=== PATIENT | male | born 2000 | race Caucasian/White ===

== ENCOUNTER 2024-10-22 09:22 | Inpatient (IN) | payer OTHER, SELFPAY ==
[2024-10-18 23:34] VITALS: BP 138/87
--- NOTE | 2024-10-18 23:46 | ED.GENMED ---
History of Present Illness
<Bonita Peter PA-C - Last Filed: 10/19/24 01:56>
General
Chief Complaint: Dehydration Symptoms
Source: patient
Exam Limitations: none
Time Seen by Provider: 10/18/24 23:45
Nursing documentation reviewed up to this point in time: agreed with
History of Present Illness
History of Present Illness:
Note:
CHIEF COMPLAINT(S)
Dark urine
HISTORY OF PRESENT ILLNESS
The patient is a 24-year-old male with no significant past medical history, who presents to the emergency department today with concerns of dark-colored urine for approximately 30-45 minutes. The patient reports that he was getting ready for bed
tonight and went to use the bathroom when he noticed his urine was dark in color and brown appearing. This has never happened to patient before. Of note, patient reports that he works outside in [employer] and does this every day. He did note that he
thought he was perspiring a lot today. Patient reports that when he got home, he had dinner and then he went to the gym to lift weights. He reports that his legs feel sore from weight lifting. Patient reports that he does not lift weights regularly
and today was the first day he started to do this. Patient denies any medical history, denies any history of kidney stones, denies any history of intra-abdominal surgeries. He denies any flank pain, back pain, abdominal pain, nausea, vomiting,
fevers or chills. He denies any sick contacts, he denies any changes to his appetite. Of note patient reports that earlier, he noted some mild burning with urination but this has since resolved and he seems to have only had 1 episode of this. He
denies any chest pain, shortness of breath.
ADDITIONAL HISTORY OBTAINED FROM SOURCES OTHER THAN THE PATIENT
According to the patient, his sister has a history of kidney stones, but there is no personal history of similar issues.
SOCIAL HISTORY
The patient works in [employer], which involves being outdoors for extended periods.
REVIEW OF SYSTEMS
See HPI
PHYSICAL EXAM
General: Patient is well appearing and in no acute distress; non-toxic
Skin: Warm and dry, no rashes or lesions
Head: Normocephalic, atraumatic
Eyes: Sclera non-icteric. EOMs intact.
Cardiac: Patient is tachycardic otherwise regular rhythm, no murmurs
Peripheral Vascular: No lower extremity swelling or edema
Pulm: Normal respiratory effort, no wheezes, rales, rhonchi
Abdomen: No abdominal tenderness to palpation, normoactive bowel sounds
Neuro: CN II-XII intact, no focal neurologic deficits.
Psychiatric: Appropriate mood and affect.
PLAN
Hydrate with IV fluids
Obtain CBC, CMP, CPK level
Obtain urinalysis
Reassess
DIFFERENTIAL DIAGNOSIS
The Differential Diagnosis includes, in no particular order and is not limited to:
- Dehydration
- Rhabdomyolysis
- Urinary tract infection
- Kidney stones
- Acute kidney injury
- Viral infection
REVIEW OF PREVIOUS RECORDS
No prior ER physician documentation or discharge summaries in [facility] to review
UPDATES
On reassessment notes some soreness in his legs but otherwise feels well
MDM/DISPOSITION
24-year-old male with no significant past medical history presents emergency department today with concerns of dark-colored urine starting approximately 45 minutes ago. History, physical, and plan as above. He was found to be in acute rhabdomyolysis
with a AST of 1517, ALT of 435, and CK of 108,966. Case discussed with hospitalist for admission.
Review of Systems
<Bonita Peter PA-C - Last Filed: 10/19/24 01:56>
Review of Systems
All Other Systems: ROS reviewed and negative except as documented in HPI and ROS
Phy Exam
<Bonita Peter PA-C - Last Filed: 10/19/24 01:56>
Physical Exam
Physical Exam:
see hpi
Course
<Bonita Peter PA-C - Last Filed: 10/19/24 01:56>
Orders/Labs/Results
Orders:
Orders
10/18/24 23:57
CPK [Creatine Phosphokinase] Urgent
Complete Blood Count/With Diff Urgent
Comprehensive Metabolic Panel Urgent
Urinalysis Reflex To Culture Urgent
Date Specimen was Collected: 10/18/24
Time Specimen was Collected: 23:55
Urine Microscopic Reflex Cult Urgent
0.9% Sodium Chloride 1000 ml [Nss] 1,000 ml IV BOLUS
10/19/24 01:09
0.9% Sodium Chloride 500 ml [Nss] 500 ml IV BOLUS
Abnormal Lab Results
10/18/24
23:57
RDW 11.3 L %
(11.5-14.5)
Absolute Monos (auto) 0.7 H 10^3/uL
(0.1-0.6)
Monocytes % 10.2 H %
(1.7-9.3)
BUN 22 H mg/dl
(9-20)
Glucose 104 H mg/dl
(70-99)
AST 1517 H* U/L
(17-59)
ALT 435 H U/L
(0-50)
Creatine Kinase 267127 H U/L
(55-170)
Albumin 5.2 H g/dl
(3.5-5.0)
Ur Occult Blood Reflex 4+ A
(Negative)
Urine Albumin (Reflex) 3+ A
(Neg - Trace)
10/18/24 23:57
10/18/24 23:57
Vital Signs
Initial and Last Documented VS:
Initial Vital Signs
Temp Pulse Resp BP Pulse Ox
98.4 F 121 20 138/87 96
10/18/24 23:34 10/18/24 23:34 10/18/24 23:34 10/18/24 23:34 10/18/24 23:34
Last Documented Vital Signs
Temp Pulse Resp BP Pulse Ox
98.4 F 89 18 123/77 100
10/18/24 23:34 10/19/24 00:03 10/19/24 00:03 10/19/24 00:03 10/19/24 00:03
<Ondina Cobb MD - Last Filed: 10/19/24 01:56>
Orders/Labs/Results
Orders:
Orders
10/18/24 23:57
CPK [Creatine Phosphokinase] Urgent
Complete Blood Count/With Diff Urgent
Comprehensive Metabolic Panel Urgent
Urinalysis Reflex To Culture Urgent
Date Specimen was Collected: 10/18/24
Time Specimen was Collected: 23:55
Urine Microscopic Reflex Cult Urgent
0.9% Sodium Chloride 1000 ml [Nss] 1,000 ml IV BOLUS
10/19/24 01:09
0.9% Sodium Chloride 500 ml [Nss] 500 ml IV BOLUS
Abnormal Lab Results
10/18/24
23:57
RDW 11.3 L %
(11.5-14.5)
Absolute Monos (auto) 0.7 H 10^3/uL
(0.1-0.6)
Monocytes % 10.2 H %
(1.7-9.3)
BUN 22 H mg/dl
(9-20)
Glucose 104 H mg/dl
(70-99)
AST 1517 H* U/L
(17-59)
ALT 435 H U/L
(0-50)
Creatine Kinase 873623 H U/L
(55-170)
Albumin 5.2 H g/dl
(3.5-5.0)
Ur Occult Blood Reflex 4+ A
(Negative)
Urine Albumin (Reflex) 3+ A
(Neg - Trace)
10/18/24 23:57
10/18/24 23:57
Vital Signs
Initial and Last Documented VS:
Initial Vital Signs
Temp Pulse Resp BP Pulse Ox
98.4 F 121 20 138/87 96
10/18/24 23:34 10/18/24 23:34 10/18/24 23:34 10/18/24 23:34 10/18/24 23:34
Last Documented Vital Signs
Temp Pulse Resp BP Pulse Ox
98.4 F 89 18 123/77 100
10/18/24 23:34 10/19/24 00:03 10/19/24 00:03 10/19/24 00:03 10/19/24 00:03
<Bonita Peter PA-C - Last Filed: 10/19/24 01:56>
*Pulse Oximetry
SaO2: 96
Oxygen Mode of Delivery: Room air
*Critical Care Note
Total Time (30-74mins, 75-104mins- exclusive of procedures): Not Applicable
ED Attending Note
<Bonita Peter PA-C - Last Filed: 10/19/24 01:56>
-
Portions of this chart may have been created with voice recognition software.� Occasional wrong word or��sound alike� substitutions may have occurred due to the inherent limitations of voice recognition software.
<Ondina Cobb MD - Last Filed: 10/19/24 01:56>
ED Attending Note
Patient seen and examined by attending physician: Yes
I performed the substantive portion of visit, reviewed & personally made and approve the management plan that is documented in note by myself or MAGGIE.: Yes
ED Attending Note:
24-year-old male who noted dark urine today. He does note that he return to the gym after a 9-month hiatus 2 days ago and did a relatively intense workout. 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 He denies any complaints with the
exception of his legs being a little bit sore. He denies bruising, bleeding, chest pain, shortness of breath, abdominal pain, dysuria, fever, chills, or other complaints. Patient does not use drugs. Patient is never had this before. On exam
patient extremely well-appearing awake alert pleasant. No tenderness to palpation of lower extremities. Evaluation consistent with rhabdomyolysis. Potassium and calcium unremarkable. IV fluids initiated, admission.
Discharge Plan
Departure
Patient Disposition: Admit
Date of Disposition: 10/19/24
Time of Disposition: 01:50
Admit to: Med/Surg
Presentation/result/management discussed w/ accepting MD/DO: Hospitalist
Patient with high blood pressure during this ER visit?: No
Condition: Fair
Discharge Problem:
Rhabdomyolysis
Prescriptions:
No Action
No Current Medications
0
Referrals:
Brian Tomas MD [Family Provider, Family Practice]
Interventions
Interventions:
*Risk Screen - Suicide Last Done: 10/18/24 23:34
*General Assessment Last Done: 10/18/24 23:34
*Neglect/Abuse Screening Last Done: 10/18/24 23:34
*ED- Fall Risk Assessment Last Done: 10/18/24 23:34
*ED COVID-19 Vaccine History Last Done: 10/18/24 23:34
ED- Cardiac Assessment Last Done: 10/18/24 23:51
ED-Male Genitourinary Assessment Last Done: 10/18/24 23:51
ED- Neurological Assessment Last Done: 10/18/24 23:51
ED- Pulmonary Assessment Last Done: 10/18/24 23:51
Discharge Date and Time
Print Language: AMHARIC
[2024-10-19] VITALS (7 sets, daily range): BP systolic 105–132; BP diastolic 62–83; BMI 21.0
[2024-10-19] MEDS: NSS 1000 IV ×5 (00:05→19:24)
[2024-10-19 00:27] LABS: Urine Albumin 3+ (Neg - Trace); Urine Bilirubin Negative (Negative); Urine Character Clear (Clear); Urine Color Amber; Urine Glucose Negative (Negative); Urine Ketone Negative (Negative); Urine Leukocyte Negative (Negative); Urine Nitrite Negative (Negative); Urine Occult Blood 4+ (Negative); Urine Specific Gravity 1.025 (<1.030); Urine Urobilinogen Negative (Neg - 1+)
[2024-10-19 00:39] LABS: ALT (SGPT) 435 U/L (0-50); Albumin 5.2 g/dl (3.5-5.0); Alkaline Phosphatase 38 U/L (38-126); Blood Urea Nitrogen 22 mg/dl (9-20); Calcium 9.9 mg/dl (8.4-10.2); Carbon Dioxide 27 mmol/L (22-30); Chloride 106 mmol/L (98-107); Glucose 104 mg/dl (70-99); Potassium 3.8 mmol/L (3.5-5.1); Sodium 142 mmol/L (135-145); Total Bilirubin 0.9 mg/dl (0.2-1.3); Total Protein 7.5 g/dl (6.3-8.2); eGFR > 60.00
[2024-10-19 00:42] LABS: % Basophils 0.6 % (0-2); % Eosinophils 1.7 % (0-6); % Immature Granulocytes 0.3 % (0-0.5); % Lymphocytes 29.1 % (20.5-51.1); % Monocytes 10.2 % (1.7-9.3); % Neutrophils 58.1 % (42.2-75.2); Absolute Eosinophils 0.1 10^3/uL (0-0.7); Absolute Lymphocytes 2.1 10^3/uL (1.2-3.4); Absolute Monocytes 0.7 10^3/uL (0.1-0.6); Absolute Neutrophils 4.1 10^3/uL (1.4-6.5); Hemoglobin 15.6 g/dL (13.0-18.0); Mean Corp Hgb Conc. 36.3 g/dL (33.0-37.0); Mean Corpuscular Volume 85.3 fL (80.0-94.0); Mean Platelet Volume 10.2 fL (7.4-10.4); Nucleated Red Blood Cells % 0 % (-); Platelet Count 245 10^3/uL (130-400); Red Blood Cell Count 5.04 10^6/uL (4.70-6.10); Red Cell Dist. Width 11.3 % (11.5-14.5); White Blood Cell Count 7.1 10^3/uL (4.8-10.8)
[2024-10-19 00:54] LABS: Urine Red Blood Cell 0-2 /HPF (0-2); Urine White Cell 0-2 /HPF (0-5)
[2024-10-19 00:57] LABS: AST (SGOT) 1517 U/L (17-59)
[2024-10-19] MEDS: NSS 500 IV (01:11)
[2024-10-19 01:31] LABS: Creatine Phosphokinase 108966 U/L (55-170)
--- NOTE | 2024-10-19 03:12 | HPS.HSE ---
Family Physician
-
Family Physician: Brian Tomas
Chief Complaint
-
Dehydration, dark-colored urine
History of Present Illness
This is a 24-year-old male with no notes of Past medical history presenting to the emergency department after he noticed dark/brown-colored urine over the last 2 days.
Patient initially noticed that the urine was brownish colored but still light wondered ago. However the following day he started having very dark brown urine which was atypical for him.
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 He is usually cognizant of his dehydration status looking at his urine but states that this is darker in usual. He also reports soreness in the adductor muscles
of the thighs bilaterally as well as in the calves bilaterally. Patient stated that he had recently started going back to the gym after 8 months of not going. He was doing squats and although it tried to start slowly he has friends in the area and
he did not go for his personal best.
Patient states he hydrates himself with water regularly. Reports taking some protein supplement but no additional supplements 40 workout. He denies any family history of personal history of connective tissue disorders. He denies any medications.
He denies any congenital diseases.
In the emergency department he was afebrile, blood pressure was 120/70 with a pulse of 81 and was satting 98%.
CBC was unremarkable. Electrolytes were normal. BUN/creatinine were normal. AST was elevated at 40,000, CK was greater than 642425.
Medical History
Past Medical History
Past Medical History: Reports None
Past Surgical History: Reports Other (Jet tooth removal)
Social History
Tobacco: Non-smoker
Alcohol: Occasional
Drug: None
Personal: Single
Living: With Family
Employment: Not Employed
Family History
Family History: Not pertinent
Allergies / Home Medications
Allergies reflects when Allergies were last updated in [email or web address].
Home Medications with original date entered in [email or web address]
Allergy/Medication List:
Allergies
Allergy/AdvReac Type Severity Reaction Status Date / Time
No Known Allergies Allergy Verified 10/18/24 23:34
Home Medications
No Meds [No Current Medications] 10/18/24
Review of Systems
-
History Source: Patient
Constitutional: Reports No Symptoms
EENT: Reports No Symptoms
Respiratory: Reports No Symptoms
Cardiac: Reports No Symptoms
Abdomen/GI: Reports No Symptoms
: Reports Dark Urine
Musculoskeletal: Reports No Symptoms
Skin: Reports No Symptoms
Neurological: Reports No Symptoms
Endocrine: Reports No Symptoms
Hematologic/Lymphatic: Reports No Symptoms
Psych: Reports No Symptoms
Physical Exam
Vital Signs
Vital Signs
Temp Pulse Resp BP Pulse Ox
98.4 F 81 17 123/77 98
10/18/24 23:34 10/19/24 01:56 10/19/24 01:56 10/19/24 01:56 10/19/24 01:56
Physical Exam
General: Well Developed, Well Nourished and No Apparent Distress
HEENT: NormoCephalic, Moist mucous membranes and Atraumatic
Respiratory: Clear
Cardiac: S1/S2 and Regular Rhythm; No Murmur or Rub
GI: Soft, Non Tender, Non Distended and Normal Bowel Sounds; No Organomegaly
Rectal: Deferred by Provider
Musculoskeletal: No Clubbing, No Cyanosis and No Edema
Skin: No Rash
Neuro: Nonfocal/grossly intact
Laboratory Results
-
10/18/24 23:57
10/18/24 23:57
Laboratory Results
Total Bilirubin 0.9 mg/dl (0.2-1.3) 10/18/24 23:57
AST 1517 U/L (17-59) H* 10/18/24 23:57
ALT 435 U/L (0-50) H 10/18/24 23:57
Alkaline Phosphatase 38 U/L (38-126) 10/18/24 23:57
Data Reviewed
-
Lab Data: Labs Reviewed by me
Old Records: Reviewed
Impression/Plan
-
IMPRESSION:
24-year-old male with rhabdomyolysis likely on the basis of dehydration and recently restarting heavy with exercises in the gym. No history of connective tissue disorders. He denies any weakness. He does have soreness in the adductor muscles of
the thigh and calf muscles. Denies having any spasms. CPK was 221591. Creatinine 0.9, BUN 22.
PLAN:
Rhabdomyolysis -significant rhabdomyolysis but without GERALDINE at this time
-Admit to MedSurg observation
-Continue aggressive hydration to prevent GERALDINE, normal saline at 100 mL/h for now
-Check CPK every 8 hours,
-Once CPK starts trending down and patient is asymptomatic he likely can be discharged with instructions to avoid any strenuous activity or heavy lifting for at least 5 days.
-Avoid nephrotoxin
-Pain control with acetaminophen for now
-Monitor I's and O's
DVT prophylaxis�SCDs
CODE STATUS�full code
[2024-10-19] MEDS: FLUSH (NSS) 1 FLUSH IV (03:39)
--- NOTE | 2024-10-19 04:52 | PTCARENOTE ---
Patient arrived from ED via stretcher, ambulated from stretcher to bed independently. VSS. IV fluids running at 200 ml/hr. Patient complaining of mild bilateral calf pain. Patient did bring in valuables from home including his cell phone and wallet
with money inside. Security called, by this RN, to secure wallet. Patient oriented to room. Bed in lowest position. Call snyder and personal belongings within reach.
[2024-10-19 08:55] LABS: Blood Urea Nitrogen 14 mg/dl (9-20); Calcium 9.2 mg/dl (8.4-10.2); Carbon Dioxide 26 mmol/L (22-30); Chloride 111 mmol/L (98-107); Estimated Creatinine Clearance > 125 ml/min; Glucose 96 mg/dl (70-99); Potassium 4.2 mmol/L (3.5-5.1); Sodium 141 mmol/L (135-145); eGFR > 60.00
[2024-10-19 09:24] LABS: ALT (SGPT) 354 U/L (0-50); Alkaline Phosphatase 31 U/L (38-126); Direct Bilirubin 0.2 mg/dl (0.0-0.4); Total Bilirubin 1.2 mg/dl (0.2-1.3); Total Protein 6.1 g/dl (6.3-8.2)
[2024-10-19 10:03] LABS: AST (SGOT) 1139 U/L (17-59); Creatine Phosphokinase 75079 U/L (55-170)
--- NOTE | 2024-10-19 14:32 | W.PN.UPDATE ---
Update Note
Progress Note Update
Seen and examined. No new complaints. No acute overnight events.
Wants to go home however continues to have soreness in bilateral lower extremities
Will continue IV fluids for treatment acute nontraumatic rhabdomyolysis
Has elevated transaminitis likely related to rhabdo.
Check hepatitis panel and abdominal ultrasound
Continue IV fluids at a rate of 200 cc/h
Repeat LFTs CK BMP tomorrow morning
--- NOTE | 2024-10-19 16:14 | CM ---
digital asset manager reviewed patient's chart and met with patient and patient was admitted under OBS, OBS letter discussed with patient not signed, and placed on patient's chart. patient lives with his parents in a multilevel level home, patient is
independent with adl's and ambulation, no dme. Home no needs when stable.
PCP: Dr. Brian Tomas
Pharmacy: [facility].
[2024-10-19 17:49] LABS: Creatine Phosphokinase 73300 U/L (55-170)
--- NOTE | 2024-10-19 18:41 | PTCARENOTE ---
Assumed care of pt from previous nurse. Pt denies pain. Pt call snyder is within reach, pt rings shad. will cont to monitor. NPO after midnight for abdominal US
[2024-10-20] MEDS: NSS 1000 IV ×4 (01:08→19:38)
[2024-10-20 01:38] LABS: Creatine Phosphokinase 56833 U/L (55-170)
[2024-10-20 07:14] VITALS: BP 93/63
[2024-10-20 09:37] LABS: Blood Urea Nitrogen 8 mg/dl (9-20); Calcium 9.8 mg/dl (8.4-10.2); Carbon Dioxide 25 mmol/L (22-30); Chloride 109 mmol/L (98-107); Estimated Creatinine Clearance > 125 ml/min; Glucose 93 mg/dl (70-99); Potassium 4.6 mmol/L (3.5-5.1); Sodium 144 mmol/L (135-145); eGFR > 60.00
--- NOTE | 2024-10-20 11:01 | PTCARENOTE ---
Assumed care of pt from previous nurse. Pt denies pain. Pt ivf infusing without issue. pt to and from ultrasound. Pt call snyder is within reach, pt rings shad. will cont to monitor.
[2024-10-20 11:33] LABS: ALT (SGPT) 436 U/L (0-50); Albumin 4.8 g/dl (3.5-5.0); Alkaline Phosphatase 37 U/L (38-126); Direct Bilirubin 0.3 mg/dl (0.0-0.4); Total Bilirubin 1.3 mg/dl (0.2-1.3); Total Protein 6.9 g/dl (6.3-8.2)
[2024-10-20 11:46] LABS: AST (SGOT) 978 U/L (17-59)
--- NOTE | 2024-10-20 13:33 | W.PN.HOSP.TC ---
Today's Communication/Plan
-
Assessment / Plan
Assessment / Plan
NAD
Scleral Anicteric
MMM
No JVD
CTABL
RRR, S1/S2
Soft, NT, ND, BS+
Warm, Dry
AAOx3
Calm
Acute rhabdomyolysis nontraumatic
Secondary to likely being dehydrated/ in return to September IV fluids
Daily CK If he leaves AM he needs to drink 2 to 3 L daily
Outpatient repeat labs within 3 to 6 days he is competent to make the medical decision to leave AMA as I spoke to him in depth about potentially requiring hemodialysis if CK begins to build up in his kidneys and he eventually thinks for potential
hemodialysis.
Reviewed case he has a pretty affected liver enzymes/transamitis that is related to rhabdo. Expect to imprve.
Right upper quadrant ultrasound pending
Anticipated Discharge: 24 - 48 hours
Subjective/Interval History
-
Date of Service: October 20, 2024
Seen and examined. No new complaints. No acute overnight events.
Continues to have muscle aches in his lower extremities. Frustrated that he cannot be discharged today. Asking about AMA.
Objective Data
-
Labs:
Laboratory Results
10/20/24
08:24
Sodium 144
Potassium 4.6
Chloride 109 H
Carbon Dioxide 25
BUN 8 L
Creatinine 0.7
Glucose 93
Calcium 9.8
Total Bilirubin 1.3
AST 978 H*
ALT 436 H
Alkaline Phosphatase 37 L
Vital Signs:
Vital Signs
Temp Pulse Resp BP Pulse Ox
97.8 F 65 16 93/63 100
10/20/24 07:14 10/20/24 07:14 10/20/24 07:14 10/20/24 07:14 10/20/24 08:00
I&O
10/19/24 10/20/24 10/21/24
06:59 06:59 06:59
Intake Total 320 / 320 2480 / 2480
Balance 320 / 320 2480 / 2480
[2024-10-20 15:29] VITALS: BP 118/73
[2024-10-20 23:13] VITALS: BP 109/69
[2024-10-21] MEDS: NSS 1000 IV ×5 (00:45→21:56)
[2024-10-21 07:35] VITALS: BP 133/66
[2024-10-21 08:07] LABS: Blood Urea Nitrogen 9 mg/dl (9-20); Calcium 9.6 mg/dl (8.4-10.2); Carbon Dioxide 24 mmol/L (22-30); Chloride 110 mmol/L (98-107); Estimated Creatinine Clearance > 125 ml/min; Glucose 90 mg/dl (70-99); Potassium 4.3 mmol/L (3.5-5.1); Sodium 141 mmol/L (135-145); eGFR > 60.00
[2024-10-21 09:16] LABS: ALT (SGPT) 396 U/L (0-50); Albumin 4.5 g/dl (3.5-5.0); Alkaline Phosphatase 33 U/L (38-126); Direct Bilirubin 0.4 mg/dl (0.0-0.4); Total Protein 6.4 g/dl (6.3-8.2)
[2024-10-21 09:28] LABS: AST (SGOT) 710 U/L (17-59)
[2024-10-21 09:52] LABS: Creatine Phosphokinase 35758 U/L (55-170)
--- NOTE | 2024-10-21 10:30 | W.PN.HOSP.TC ---
Today's Communication/Plan
-
Assessment / Plan
Assessment / Plan
NAD
Scleral Anicteric
MMM
No JVD
CTABL
RRR, S1/S2
Soft, NT, ND, BS+
Warm, Dry
AAOx3
Calm
Acute rhabdomyolysis nontraumatic
Secondary to likely being dehydrated - works in the heat as manufacturing production technician/working out
-Daily CK
-Daily BMP
-Daily LFT
-IVF at 200cc/hr
-Avoid strenuous activity
Anticipated Discharge: 24 - 48 hours
Subjective/Interval History
-
Date of Service: October 21, 2024
seen and examined. no new complaints. no acute overnight events
Objective Data
-
Labs:
Laboratory Results
10/21/24
06:57
Sodium 141
Potassium 4.3
Chloride 110 H
Carbon Dioxide 24
BUN 9
Creatinine 0.7
Glucose 90
Calcium 9.6
Total Bilirubin 1.0
AST 710 H*
ALT 396 H
Alkaline Phosphatase 33 L
Vital Signs:
Vital Signs
Temp Pulse Resp BP Pulse Ox
97.3 F 73 20 109/69 100
10/20/24 23:13 10/20/24 23:13 10/20/24 23:13 10/20/24 23:13 10/20/24 23:13
I&O
10/20/24 10/21/24 10/22/24
06:59 06:59 06:59
Intake Total 2480 / 2480 4500 / 4500 1999
Balance 2480 / 2480 4500 / 4500 1999
[2024-10-21 15:56] VITALS: BP 132/88
[2024-10-21] MEDS: NSS IV (20:46)
[2024-10-21 23:00] VITALS: BP 124/72
[2024-10-22] MEDS: NSS 1000 IV ×3 (03:04→13:22)
[2024-10-22 07:59] VITALS: BP 128/82
[2024-10-22 08:39] LABS: Blood Urea Nitrogen 9 mg/dl (9-20); Calcium 9.7 mg/dl (8.4-10.2); Carbon Dioxide 25 mmol/L (22-30); Chloride 108 mmol/L (98-107); Estimated Creatinine Clearance > 125 ml/min; Glucose 86 mg/dl (70-99); Potassium 3.9 mmol/L (3.5-5.1); Sodium 142 mmol/L (135-145); eGFR > 60.00
[2024-10-22 09:18] LABS: Amphetamines Negative (Negative); Barbiturates Negative (Negative); Benzodiazepines Negative (Negative); Buprenorphine Negative (Negative); Cocaine Negative (Negative); Marijuana Positive (Negative); Methadone Negative (Negative); Methamphetamines Negative (Negative); Opiates Negative (Negative); Phencyclidine Negative (Negative); Tricyclic Antidepressants Negative (Negative)
[2024-10-22 09:44] LABS: Creatine Phosphokinase 12022 U/L (55-170)
[2024-10-22 10:29] LABS: ALT (SGPT) 356 U/L (0-50); AST (SGOT) 414 U/L (17-59); Albumin 4.8 g/dl (3.5-5.0); Alkaline Phosphatase 35 U/L (38-126); Direct Bilirubin 0.4 mg/dl (0.0-0.4); Total Bilirubin 0.9 mg/dl (0.2-1.3); Total Protein 6.8 g/dl (6.3-8.2)
--- NOTE | 2024-10-22 10:31 | W.PN.HOSP.TC ---
Today's Communication/Plan
-
repeat CPK at 5pm and d/c when close to 5k
Assessment / Plan
Assessment / Plan
24yo M with no significant PMGHX came with dark colored urine, managed for rhabdomyolisis, thought to be 2/2 dehydration and working in the heat for appr 12h before the presentation. ALso he just returned to the gym and started w/o day prior to
admission. No myalgia noted by patient, he is able to hydrate well and kidney function remains WNL with appropriate decrease in CPK. RUQ US done due to elevated LFT and ndid not show any abnormality. Bili is WNL.
A/P:
#Rhabdomyolysis
#transaminase elevation 2/2 rhabdomyolysis
no overt signs of heat stroke on arrival - normal temp
UDS positive for marijuana - counseled on cessation
IVF
Target CPK closer to 5k before d/c as patient able and willing to continue oral hydration upon d/c and chance of kidney damage with CPK <5k is miserable
DVT ppx Lovenox
Full code
I have spent at least 55min reviewing chart, test results and providing direct patient care
Anticipated Discharge: Within 24 hours
Subjective/Interval History
-
Date of Service: October 22, 2024
Objective Data
-
Labs:
Laboratory Results
10/22/24
07:16
Sodium 142
Potassium 3.9
Chloride 108 H
Carbon Dioxide 25
BUN 9
Creatinine 0.7
Glucose 86
Calcium 9.7
Total Bilirubin 0.9
AST 414 H
ALT 356 H
Alkaline Phosphatase 35 L
Vital Signs:
Vital Signs
Temp Pulse Resp BP Pulse Ox
97.6 F 86 14 128/82 100
10/22/24 07:59 10/22/24 07:59 10/22/24 07:59 10/22/24 07:59 10/22/24 07:59
I&O
10/21/24 10/22/24 10/23/24
06:59 06:59 06:59
Intake Total 4500 / 4500 8740 / 8740
Balance 4500 / 4500 8740 / 8740
Review of Systems
-
History Source: Patient
All other systems: Reviewed and negative
Physical Exam
-
General: Other (patient did not alolow physical exam as he got frustrated that he still needs IV hydration, so he left to the bathroom)
--- NOTE | 2024-10-22 13:17 | W.DCSUMMARY ---
Discharge Summary
Discharge Data
Date of Admission: 10/22/24
Date of Discharge: 10/22/24
-
Pending Results: No
Hospital Course
24yo M with no significant PMGHX came with dark colored urine, managed for rhabdomyolysis, thought to be 2/2 dehydration and working in the heat for appr 12h before the presentation. ALso he just returned to the gym and started w/o day prior to
admission. No myalgia noted by patient, he is able to hydrate well and kidney function remains WNL with appropriate decrease in CPK. RUQ US done due to elevated LFT and ndid not show any abnormality. Bili is WNL. CPK was still >9k,and further
hydration indicated, but patient decided to sign out AMA
I have spent at least 55min reviewing chart, test results and providing direct patient care
Patient was managed for:
#Rhabdomyolysis, non-traumatic
#transaminase elevation 2/2 rhabdomyolysis
Discharge Plan
-
Patient Disposition: Against Medical Advice
Discharge Diagnosis/Procedures: Rhabdomyolysis
Condition: Good
Diet: Regular
Additional Diets: Remain well hydrated - 2.5L of fluid per day intake at least
Referrals:
Brian Tomas MD [Family Provider, [facility]]
Prescriptions:
No Action
No Current Medications
0
Discharge Date and Time
Discharge Date/Time: 10/22/24 20:05
Print Language: [place]
--- NOTE | 2024-10-22 14:19 | CM ---
Patient switched to inpatient, patient made aware, plan is to home with family when stable.
Plan; Home with family when stable.
[2024-10-22 15:18] VITALS: BP 128/60
[2024-10-22 19:02] LABS: Creatine Phosphokinase 9316 U/L (55-170)
[2024-10-22 19:40] VITALS: BP 126/72
--- NOTE | 2024-10-22 20:03 | W.PN.UPDATE ---
Update Note
Progress Note Update
Pt wanted to leave AMA despite CPK levels still > 5000 goal range. Discussed risks vs. benefits (Kidney damage, muscle weakness, cramping, ) Pt still wishes to leave. AMA papers signed.
[2024-10-23 15:53] LABS: Hepatitis B Surface Antigen Negative (Negative)
[2024-10-23 16:10] LABS: Hepatitis A Antibody, Total Positive (Negative); Hepatitis C Antibody Negative (Negative)
[2024-10-23 18:21] LABS: Hepatitis B Surface Antibody Positive
== END 2024-10-22 20:05 | disposition left against medical advice (07) | DRG 558 ==
LOC: 4 WEST ACU 09:22
PROVIDERS: Hospitalist; Physician Assistant; ADMITTING PHYSICIAN Internal Medicine; ATTENDING PHYSICIAN Internal Medicine; EMERGENCY PHYSICIAN Emergency Medicine; FAMILY PHYSICIAN Family Medicine
DX: M62.82 Rhabdomyolysis (principal); E86.0 Dehydration; R74.01 Elevation of levels of liver transaminase levels; R30.9 Painful micturition, unspecified; Z53.29 Procedure and treatment not carried out because of patient's decision for other reasons; Z84.1 Family history of disorders of kidney and ureter
CPT/HCPCS: 76700; 80048; 80053; 80076; 80306; 81003; 81015; 82248; 82550; 85025; 86706; 86708; 86803; 87340; 96360; 96361; 99284